=== PATIENT | male | born 1955 | race Caucasian/White ===

== ENCOUNTER 2016-09-09 19:55 | Emergency (ER) | payer MEDICAID, OTHER ==
[~2016-09-09] VITALS: Ht 172.7 cm; Wt 72.3 kg
[~2016-09-09 19:55] MED LIST: ASPI81TA2 PO; SIMV-260 PO
[2016-09-09] MEDS ORDERED: ATOR40TA28 PO (20:07)
[2016-09-09] MEDS ORDERED: ALBU8.5H IH (20:07)
[2016-09-09] MEDS ORDERED: D-ME118S13 PO (20:07)
[2016-09-09] MEDS ORDERED: METF500T4 PO (20:07)
[2016-09-09] MEDS ORDERED: HYDR25TA PO (20:07)
[2016-09-09] MEDS ORDERED: LISI-662 PO (20:07)
[2016-09-09 20:11] LABS: GLUCOSE,POINT OF CARE 157 MG/DL (70-110)
[2016-09-09] MEDS ORDERED: IPRATROPIUM BROMIDE 0.5 MG/2.5 ML NEB SOLUTION NEB ONE ×2 (20:15→22:30)
[2016-09-09] MEDS ORDERED: ALBUTEROL SULFATE 5 MG/ML 20 ML NEB SOLN [BULK] NEB ONE (20:15)
[2016-09-09] MEDS ORDERED: ALBUTEROL SULFATE 2.5 MG/0.5 ML NEB SOLUTION NEB ONE (22:30)
[2016-09-09] MEDS ORDERED: SODIUM CHLORIDE 0.9% 1,000 ML IV ONE (22:30)
[2016-09-09 22:42] LABS: BASOPHILS % (AUTO) 0.3 % (0.0-2.0); EOSINOPHILS % (AUTO) 0.6 % (1.0-6.0); HEMATOCRIT 38.1 % (41-53); HEMOGLOBIN 12.3 g/dL (13.5-17.5); LYMPHOCYTES # (AUTO) 2.6 K/uL (1.0-4.8); MEAN CORPUSCULAR HEMOGLOBIN 28.8 pg (26.0-34.0); MEAN CORPUSCULAR HGB CONC 32.2 G/dL (31.0-37.0); MEAN CORPUSCULAR VOLUME 89 fL (80-100); MONOCYTES # (AUTO) 0.8 K/uL (0.1-1.0); MONOCYTES % (AUTO) 5.8 % (2.0-9.0); NEUTROPHILS # (AUTO) 10.2 K/uL (1.8-7.7); NEUTROPHILS % (AUTO) 74.3 % (40.0-70.0); PLATELET COUNT (AUTO) 295 K/uL (150-450); RED BLOOD CELL COUNT(AUTO) 4.26 MIL/uL (4.50-5.90); RED CELL DISTRIBUTION WIDTH 14.2 % (11.5-14.5); WHITE BLOOD COUNT (AUTO) 13.7 K/uL (4.5-11.0)
[2016-09-09 23:00] LABS: CALCIUM, TOTAL 8.6 mg/dL (8.8-10.5); CREATININE 1.5 mg/dL (0.60-1.30)
[2016-09-09 23:01] LABS: GLUCOSE,POINT OF CARE 116 MG/DL (70-110)
[2016-09-09 23:06] LABS: ALBUMIN 3.1 g/dL (3.4-5.0); BILIRUBIN,TOTAL 0.3 mg/dL (0.1-1.0); TOTAL PROTEIN, SERUM 7.3 g/dL (6.4-8.2)
[2016-09-09] MEDS ORDERED: OxyCODONE HCL/ACETAMINOPHEN 5-325 MG TABLET PO ONE (23:15)
[2016-09-09 23:54] LABS: INFLUENZA TYPE B NEGATIVE FOR TYPE B (NEGATIVE)
[2016-09-10 01:56] VITALS: BP 134/56
== END 2016-09-10 02:00 | disposition home or self-care (01) ==
LOC: EMS 19:58
DX: J18.0 Bronchopneumonia, unspecified organism (principal); R51 Headache; E11.9 Type 2 diabetes mellitus without complications; E78.00 Pure hypercholesterolemia, unspecified; I10 Essential (primary) hypertension; F17.210 Nicotine dependence, cigarettes, uncomplicated; Z79.82 Long term (current) use of aspirin
CPT/HCPCS: 36415; 71010; 80053; 82948; 82962; 84484; 85025; 87804; 93005; 94060; 94644; 96360; 99285; J7030; J7611; J7613; 94640

== ENCOUNTER 2018-05-14 13:17 | Emergency (ER) | payer SELFPAY ==
[~2018-05-14] VITALS: Ht 170.2 cm; Wt 75.0 kg
[~2018-05-14 13:17] MED LIST changes: +ALBU8.5H8 IH; -ASPI81TA2 PO; +ASPI81TA39 PO; +ATOR40TA28 PO; +D-ME118S13 PO; +HYDR25TA PO; +LISI-662 PO; +METF-960 PO; -SIMV-260 PO
[2018-05-14 14:00] VITALS: BP 122/73
[2018-05-14 14:33] LABS: BASOPHILS % (AUTO) 0.4 % (0.0-2.0); EOSINOPHILS % (AUTO) 1.4 % (1.0-6.0); HEMATOCRIT 40.7 % (41-53); LYMPHOCYTES # (AUTO) 1.4 K/uL (1.0-4.8); LYMPHOCYTES % (AUTO) 20.7 % (22.0-44.0); MEAN CORPUSCULAR HEMOGLOBIN 30.9 pg (26.0-34.0); MEAN CORPUSCULAR HGB CONC 34.3 G/dL (31.0-37.0); MEAN CORPUSCULAR VOLUME 90 fL (80-100); MONOCYTES # (AUTO) 0.4 K/uL (0.1-1.0); MONOCYTES % (AUTO) 6.4 % (2.0-9.0); NEUTROPHILS # (AUTO) 4.7 K/uL (1.8-7.7); NEUTROPHILS % (AUTO) 71.1 % (40.0-70.0); PLATELET COUNT (AUTO) 215 K/uL (150-450); RED BLOOD CELL COUNT(AUTO) 4.52 MIL/uL (4.50-5.90); RED CELL DISTRIBUTION WIDTH 14.2 % (11.5-14.5)
[2018-05-14 14:42] LABS: CALCIUM, TOTAL 8.6 mg/dL (8.8-10.5); CREATININE 1.34 mg/dL (0.60-1.30); POTASSIUM 3.8 mmol/L (3.5-5.1)
[2018-05-14 14:47] LABS: APPEARANCE,URINE CLEAR (CLEAR); BILIRUBIN,URINE NEGATIVE (NEGATIVE); GLUCOSE, URINE (UA) NEGATIVE (NEGATIVE); KETONES,URINE NEGATIVE (NEGATIVE); LEUKOCYTE ESTERASE ,URINE NEGATIVE (NEGATIVE); NITRATE,URINE NEGATIVE (NEGATIVE); OCCULT BLOOD,URINE NEGATIVE (NEGATIVE); PROTEIN,URINE NEGATIVE (NEGATIVE); UROBILINOGEN,URINE 0.2 mg/dL (<=1.0)
[2018-05-14 14:48] LABS: ALBUMIN 3.5 g/dL (3.4-5.0); BILIRUBIN,TOTAL 0.4 mg/dL (0.1-1.0); TOTAL PROTEIN, SERUM 7.3 g/dL (6.4-8.2)
== END 2018-05-14 18:33 | disposition home or self-care (01) ==
LOC: EMS 13:18
DX: K63.89 Other specified diseases of intestine (principal); N40.0 Benign prostatic hyperplasia without lower urinary tract symptoms; I10 Essential (primary) hypertension; E11.9 Type 2 diabetes mellitus without complications; E78.00 Pure hypercholesterolemia, unspecified; F17.210 Nicotine dependence, cigarettes, uncomplicated; Z79.84 Long term (current) use of oral hypoglycemic drugs; Z79.82 Long term (current) use of aspirin
CPT/HCPCS: 74176; 99285

== ENCOUNTER 2022-06-29 00:01 | Emergency (ER) | payer MEDICAID, OTHER ==
[~2022-06-29] VITALS: Ht 162.6 cm; Wt 76.0 kg
[~2022-06-29 00:01] MED LIST changes: -D-ME118S13 PO; -HYDR25TA PO; +HYDR25TA2 PO; -LISI-662 PO; +LISI-894 PO; +METF-1211 PO; -METF-960 PO; +PROM118S5 PO
[2022-06-29 00:13] VITALS: BP 160/90
[2022-06-29 00:28] LABS: COVID AG,FIA SOURCE NASOPHARYNGEAL
[2022-06-29 00:48] LABS: INFLUENZA TYPE A NEGATIVE FOR TYPE A (NEGATIVE); INFLUENZA TYPE B NEGATIVE FOR TYPE B (NEGATIVE)
[2022-06-29] MEDS ORDERED: BENZ-70 PO (01:49)
[2022-06-29] MEDS ORDERED: ACET-66 PO (01:49)
== END 2022-06-29 03:47 | disposition home or self-care (01) ==
LOC: EMS 00:03
DX: R05.9 Cough, unspecified (principal); E11.9 Type 2 diabetes mellitus without complications; E78.00 Pure hypercholesterolemia, unspecified; I10 Essential (primary) hypertension; F17.210 Nicotine dependence, cigarettes, uncomplicated; Z20.822 Contact with and (suspected) exposure to COVID-19
CPT/HCPCS: 71046; 87804; 99284

== ENCOUNTER 2023-06-14 13:30 | Emergency (ER) | payer OTHER ==
[~2023-06-14] VITALS: Ht 165.1 cm; Wt 70.5 kg
[~2023-06-14 13:30] MED LIST changes: +ACET-66 PO; +BENZ-227 PO
[2023-06-14 13:33] VITALS: BP 129/54; PULSE 73; RESP 16; TEMP 98.5
[2023-06-14] MEDS ORDERED: LISI40TA9 PO (13:37)
[2023-06-14] MEDS ORDERED: ALBU18HF12 IH (13:37)
[2023-06-14] MEDS ORDERED: BUDE10.22 IH (13:37)
[2023-06-14] MEDS ORDERED: ATOR40TA71 PO (13:37)
[2023-06-14] MEDS ORDERED: HYDR12.54 PO (13:37)
[2023-06-14] MEDS ORDERED: DAPA5TAB PO (13:37)
[2023-06-14] MEDS ORDERED: TAMS0.4C94 PO (13:37)
[2023-06-14] MEDS ORDERED: INSNOV SQ (13:37)
[2023-06-14 13:50] LABS: BASOPHILS % (AUTO) 0.7 % (0.0-2.0); EOSINOPHILS % (AUTO) 0.1 % (1.0-6.0); HEMATOCRIT 42.5 % (41-53); HEMOGLOBIN 14.1 g/dL (13.5-17.5); LYMPHOCYTES # (AUTO) 0.9 K/uL (1.0-4.8); LYMPHOCYTES % (AUTO) 6.3 % (22.0-44.0); MEAN CORPUSCULAR HEMOGLOBIN 29.8 pg (26.0-34.0); MEAN CORPUSCULAR HGB CONC 33.1 G/dL (31.0-37.0); MEAN CORPUSCULAR VOLUME 90 fL (80-100); MONOCYTES # (AUTO) 0.9 K/uL (0.1-1.0); MONOCYTES % (AUTO) 6.2 % (2.0-9.0); NEUTROPHILS # (AUTO) 12.5 K/uL (1.8-7.7); PLATELET COUNT (AUTO) 375 K/uL (150-450); RED BLOOD CELL COUNT(AUTO) 4.71 MIL/uL (4.50-5.90); RED CELL DISTRIBUTION WIDTH 14.2 % (11.5-14.5); WHITE BLOOD COUNT (AUTO) 14.4 K/uL (4.5-11.0)
[2023-06-14 13:52] LABS: NEUTROPHILS % (AUTO) 86.7 % (40.0-70.0)
[2023-06-14 14:03] LABS: CREATININE 2.28 mg/dL (0.60-1.30); POTASSIUM 4.7 mmol/L (3.5-5.1)
[2023-06-14 14:09] LABS: ALBUMIN 3.1 g/dL (3.4-5.0); BILIRUBIN,TOTAL 0.6 mg/dL (0.1-1.0); TOTAL PROTEIN, SERUM 8.4 g/dL (6.4-8.2)
[2023-06-14 14:11] LABS: TROPONIN I-HIGH SENSITIVITY 6 ng/L (<76)
[2023-06-14] MEDS ORDERED: SODIUM CHLORIDE 0.9% 1,000 ML IV ONE (16:45)
[2023-06-14] MEDS ORDERED: ACETAMINOPHEN 500 MG TABLET PO ONE (16:45)
[2023-06-14] MEDS ORDERED: INSU100V52 SQ (16:47)
[2023-06-14 18:26] LABS: APPEARANCE,URINE HAZY (CLEAR); BILIRUBIN,URINE NEGATIVE (NEGATIVE); COLOR,URINE YELLOW (YELLOW); GLUCOSE, URINE (UA) 300-500 mg/dL (NEGATIVE); KETONES,URINE NEGATIVE (NEGATIVE); LEUKOCYTE ESTERASE ,URINE LARGE (NEGATIVE); NITRATE,URINE NEGATIVE (NEGATIVE); OCCULT BLOOD,URINE SMALL (NEGATIVE); PH,URINE 5.5 (5.0-8.0); PROTEIN,URINE 30-70 mg/dL (NEGATIVE); SPECIFIC GRAVITIY, URINE 1.014 (1.003-1.030); UROBILINOGEN,URINE <=1.0 mg/dL (<=1.0)
[2023-06-14 18:53] LABS: BACTERIA,URINE Few /HPF (None Seen); RBC,URINE 0-2 /HPF (0-2); WBC,URINE 26-50 /HPF (0-5)
[2023-06-14 18:54] LABS: SQUAMOUS EPITHELIAL CELL,UR Rare /LPF (None Seen)
[2023-06-14] MEDS ORDERED: CIPR500T10 PO (19:07)
== END 2023-06-14 19:31 | disposition home or self-care (01) ==
LOC: EMS 14:12
DX: N39.0 Urinary tract infection, site not specified (principal); E11.9 Type 2 diabetes mellitus without complications; E78.00 Pure hypercholesterolemia, unspecified; I10 Essential (primary) hypertension; F17.210 Nicotine dependence, cigarettes, uncomplicated
CPT/HCPCS: 99284; 74176; 96360; 80053; 81001; 82962; 83690; 84484; 85025; 36415; 87086; 87186; J7030